=== PATIENT | male | born 1995 | race Caucasian/White ===

== ENCOUNTER 2019-12-29 12:28 | Inpatient (IN) | payer MEDICAID ==
[~2019-12-29] VITALS: Ht 170.2 cm; Wt 69.0 kg
[2019-12-29] VITALS (8 sets, daily range): BP systolic 131–149; BP diastolic 81–95
[~2019-12-29 12:28] MED LIST: LIDOcaine 1% W/epiNEPHrine 1:200,000 10ml vial ONE
--- NOTE | 2019-12-29 12:29 | NUR ---
MORPHINE 4MG GIVEN VIA PIV.VERBAL ORDER RECEIVED FROM DR. TAVAREZ.
[2019-12-29] MEDS ORDERED: morphine 4 MG/ML inj SYRINge IV ONE (12:35)
[2019-12-29] MEDS ORDERED: epiNEPHrine inj 0.3 MG in LIDOcaine 1% 30ml vial 29.7 ML IJ ONE (12:35)
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
[2019-12-29] MEDS ORDERED: normal saline 1000ML IV soln IVB ONE (13:00)
--- NOTE | 2019-12-29 13:00 | NUR ---
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
[2019-12-29 13:11] LABS: BASOPHILS # (AUTO) 0.2 X10'3 (0-0.2); BASOPHILS % (AUTO) 1.1 % (0-1); EOSINOPHILS # (AUTO) 0.5 X10'3 (0-0.9); EOSINOPHILS % (AUTO) 2.5 % (0-6); HEMATOCRIT 48.2 % (42.0-52.0); HEMOGLOBIN 15.8 g/dl (14.0-17.9); LYMPHOCYTES # (AUTO) 7.1 X10'3 (1.1-4.8); LYMPHOCYTES % (AUTO) 32.8 % (21-51); MEAN CORPUSCULAR HEMOGLOBIN 28.2 PG (27.0-31.0); MEAN CORPUSCULAR HGB CONC 32.8 g/dL (33.0-36.5); MEAN PLATELET VOLUME 7.5 FL (7.4-10.4); MONOCYTES # (AUTO) 1.2 X10'3 (0-0.9); MONOCYTES % (AUTO) 5.5 % (2-12); NEUTROPHILS # (AUTO) 12.6 X10'3 (1.8-7.7); NEUTROPHILS % (AUTO) 58.1 % (42-75); PLATELET COUNT 406 X10'3 (140-440); RED BLOOD COUNT 5.61 X10'6 (4.70-6.10); RED CELL DISTRIBUTION WIDTH 13.8 % (11.5-14.5); WHITE BLOOD COUNT 21.6 X10'3 (4.5-11.0)
--- NOTE | 2019-12-29 13:17 | NUR ---
PT BACK FROM CT
[2019-12-29 13:19] LABS: ALANINE AMINOTRANSFERASE 70 U/L (12-78); ALBUMIN 4.1 G/DL (3.4-5.0); ALBUMIN/GLOBULIN RATIO 0.9 (1.1-1.5); ALKALINE PHOSPHATASE 110 IU/L (46-116); ANION GAP 14 (8-16); ASPARTATE AMINO TRANSFERASE 32 U/L (10-37); BILIRUBIN,TOTAL 0.3 MG/DL (0.1-1.0); BLOOD UREA NITROGEN 18 MG/DL (7-18); BUN/CREATININE RATIO 15.1 (5.4-32.0); CALCIUM 9.3 MG/DL (8.5-10.1); CHLORIDE 101 MMOL/L (99-107); CREATININE 1.19 MG/DL (0.60-1.10); GLUCOSE 100 MG/DL (70-104); POTASSIUM 4.3 MMOL/L (3.5-5.1); SODIUM 138 MMOL/L (135-145); TOTAL PROTEIN 8.7 G/DL (6.4-8.2); eGFR 75 ML/MIN
--- NOTE | 2019-12-29 13:19 | NUR ---
PATIENT BACK FROM CT.PLASMA TABLE OPERATOR AT BEDSIDE INTERVIEWNG PATIENT.
--- NOTE | 2019-12-29 13:20 | NUR ---
PATIENT CONNECTED TO A REVIEW APPRAISER,PATIENT ON HIGH FOWLERS,CHEST TUBE TO LEFT CHEST CONNECTED TO SUCTION PER DR. TAVAREZ'S ORDER.
--- NOTE | 2019-12-29 13:20 | NUR ---
DR. NAVARRO AND AT BEDSIDE.
[2019-12-29 13:22] LABS: PARTIAL THROMBOPLASTIN TIME 28 SECONDS (22-32)
[2019-12-29] MEDS ORDERED: potassium CL 10mEq/100ml bag 100 ML IV PRN ×2 (13:30)
[2019-12-29] MEDS ORDERED: magnesium 2GM in 50ml NS 50 ML IV PRN (13:30)
[2019-12-29] MEDS ORDERED: sodium phosphate inj. 15 MMOL in dextrose 5%-water 250 ML IV PRN (13:30)
[2019-12-29] MEDS ORDERED: magnesium Cl slow-release 64mg tablet PO PRN (13:30)
[2019-12-29] MEDS ORDERED: potassium Cl 20 mEq SR tablet PO PRN ×2 (13:30)
[2019-12-29] MEDS ORDERED: acetaminophen 325mg tablet PO PRN ×2 (13:30)
[2019-12-29] MEDS ORDERED: Neutra Phos packet PO PRN (13:30)
[2019-12-29] MEDS ORDERED: magnesium 4gm in 100ml NS 100 ML IV PRN (13:30)
[2019-12-29] MEDS ORDERED: sodium phosphate inj. 30 MMOL in dextrose 5%-water 250 ML IV PRN (13:30)
[2019-12-29] MEDS: K, MAG and/or Phos replacement - Verify level? MC SCH (13:30)
[2019-12-29] MEDS ORDERED: ondansetron/PF 4mg/2ml inj IV PRN (13:30)
--- NOTE | 2019-12-29 13:32 | NUR ---
[facility] CONTACT NUMBER [phone]
[2019-12-29 13:36] LABS: LARGE PLATELETS FEW; PLATELET ESTIMATE NORMAL; TOTAL CELLS COUNTED 100
[2019-12-29 13:40] LABS: CLARITY,URINE CLEAR (Clear); COLOR,URINE YELLOW (Yellow); GLUCOSE, URINE NEGATIVE (Neg); KETONES,URINE NEGATIVE (Neg); LEUKOCYTE ESTERASE ,URINE NEGATIVE (Neg); NITRITES, URINE NEGATIVE (Neg); OCCULT BLOOD,URINE NEGATIVE (Neg); PH,URINE 5.5 (4.8-8.0); PROTEIN,URINE TRACE mg/dl (Neg); UA COLLECTION TYPE CLN CATCH MIDSTREAM; UROBILINOGEN,URINE 0.2 E.U/dL (0.2-1.0)
--- NOTE | 2019-12-29 13:40 | NUR ---
PT GAVE VERBAL CONSENT TO SPEAK TO [facility] ABOUT HIS CONDITION.
[2019-12-29 13:46] LABS: BACTERIA,URINE NONE SEEN /HPF (Neg); COARSE GRANULAR CAST 0-3 /LPF (NEGATIVE); MUCUS STRANDS NONE SEEN /LPF (Neg); RBC,URINE NONE SEEN /HPF (0-2); SQUAMOUS EPITHELIAL CELL,UR FEW /LPF (FEW); WBC,URINE NONE SEEN /HPF (0-4)
[2019-12-29] MEDS ORDERED: morphine/NS 5 mg/ml CADD 50 ML IV SCH (13:47)
[2019-12-29] MEDS ORDERED: naloxone 0.4 mg/ml inj IV PRN (13:50)
[2019-12-29] MEDS ORDERED: CADD PCA waste documentation MC PRN (13:50)
--- NOTE | 2019-12-29 14:37 | NUR ---
Received patient report from FIORELLA Porras.
[2019-12-29] MEDS: morphine/NS 5 mg/ml CADD 50 ML IV SCH ×3 (15:39→22:02)
[2019-12-29] MEDS: pantoprazole 40 MG vial IV SCH (15:59)
[2019-12-29] MEDS: normal saline 1000ml 1,000 ML IV SCH (16:00)
[2019-12-29] MEDS ORDERED: ipratropium/albuterol 3ml nebule NEB SCH (16:00)
[2019-12-29] MEDS ORDERED: ipratropium/albuterol 3ml nebule NEB PRN (16:15)
--- NOTE | 2019-12-29 16:27 | NUR ---
Called and spoke with SANDRA Ledbetter, new order noted to start rocephin 1gm q12 hours and nicotine patch. Jody would like Dr. Dee and Dr. Almeida to approve diet, prior to starting food.
[2019-12-29] MEDS ORDERED: ARIP10TA17 PO (16:39)
[2019-12-29] MEDS ORDERED: CLON-529 PO (16:39)
[2019-12-29] MEDS ORDERED: ATOM40CA PO (16:39)
[2019-12-29] MEDS ORDERED: TRAZ-256 PO (16:39)
[2019-12-29] MEDS ORDERED: HCTZ25T PO (16:39)
[2019-12-29] MEDS ORDERED: ARIP15TA8 PO (16:48)
[2019-12-29] MEDS ORDERED: ATOM60CA4 PO (16:48)
[2019-12-29] MEDS ORDERED: HYDR-3927 PO (16:49)
[2019-12-29] MEDS: nicotine 21mg patch - 24 hr TD SCH (17:24)
[2019-12-29] MEDS: CefTRIAXone/D5W-Rocephin 1gm 50 ML IV SCH (17:24)
[2019-12-29] MEDS ORDERED: ATOM40CA7 PO (17:27)
--- NOTE | 2019-12-29 17:30 | NUR ---
Two attempts made to reach Dr. Almeida regarding patient ability to have a diet. Unable to leave message.
--- NOTE | 2019-12-29 18:25 | NUR ---
End of shift Morphine CADD assessment: Res Vol: 46.2 doses given: 12/25 Amount given: 8.50mg
--- NOTE | 2019-12-29 18:28 | NUR ---
Spoke with Sunny, pharmacist, per Morphine CADD protocol, it is no necessary to reassess q2 hours.
--- NOTE | 2019-12-29 18:30 | NUR ---
Patient in room CICU 2016. I have received report from FIORELLA Sanchez and had the opportunity to ask questions and assume patient care.
--- NOTE | 2019-12-29 18:31 | NUR ---
Problems reprioritized. Patient report given, questions answered & plan of care reviewed with FIORELLA Hamlin.
--- NOTE | 2019-12-29 18:41 | NUR ---
This nurse spoke with Dr. Almeida on telephone to confirm that patient was not going to surgery, new order for regular diet.
[2019-12-29] MEDS ORDERED: ATOMOXETINE HCL PO SCH (20:00)
[2019-12-29] MEDS: docusate sod 100mg capsule PO SCH (20:09)
[2019-12-29] MEDS: traZODone 150mg tablet PO SCH (20:09)
[2019-12-29] MEDS: hydrOXYzine 25 MG tablet PO SCH (20:09)
[2019-12-29] MEDS: cloNIDine 0.1 mg tablet PO SCH (20:09)
[2019-12-30] VITALS (18 sets, daily range): BP systolic 98–148; BP diastolic 53–99
[2019-12-30] MEDS: morphine/NS 5 mg/ml CADD 50 ML IV SCH ×6 (01:50→12:53)
[2019-12-30 05:01] LABS: BASOPHILS % (AUTO) 0.4 % (0-1); EOSINOPHILS # (AUTO) 0.1 X10'3 (0-0.9); EOSINOPHILS % (AUTO) 0.5 % (0-6); HEMATOCRIT 40.4 % (42.0-52.0); HEMOGLOBIN 13.4 g/dl (14.0-17.9); LYMPHOCYTES # (AUTO) 1.3 X10'3 (1.1-4.8); LYMPHOCYTES % (AUTO) 10.8 % (21-51); MEAN CORPUSCULAR HEMOGLOBIN 28.1 PG (27.0-31.0); MEAN CORPUSCULAR HGB CONC 33.1 g/dL (33.0-36.5); MEAN PLATELET VOLUME 7.3 FL (7.4-10.4); MONOCYTES # (AUTO) 0.8 X10'3 (0-0.9); MONOCYTES % (AUTO) 6.7 % (2-12); NEUTROPHILS # (AUTO) 10.1 X10'3 (1.8-7.7); NEUTROPHILS % (AUTO) 81.6 % (42-75); PLATELET COUNT 269 X10'3 (140-440); RED BLOOD COUNT 4.76 X10'6 (4.70-6.10); RED CELL DISTRIBUTION WIDTH 13.7 % (11.5-14.5); WHITE BLOOD COUNT 12.3 X10'3 (4.5-11.0)
[2019-12-30 05:20] LABS: ALANINE AMINOTRANSFERASE 62 U/L (12-78); ALBUMIN 3.5 G/DL (3.4-5.0); ALBUMIN/GLOBULIN RATIO 0.9 (1.1-1.5); ALKALINE PHOSPHATASE 90 IU/L (46-116); ANION GAP 6 (8-16); ASPARTATE AMINO TRANSFERASE 30 U/L (10-37); BILIRUBIN,TOTAL 0.5 MG/DL (0.1-1.0); BLOOD UREA NITROGEN 13 MG/DL (7-18); BUN/CREATININE RATIO 13.3 (5.4-32.0); CHLORIDE 100 MMOL/L (99-107); CREATININE 0.98 MG/DL (0.60-1.10); GLUCOSE 109 MG/DL (70-104); MAGNESIUM 2.1 MG/DL (1.5-2.4); PHOSPHORUS 2.8 MG/DL (2.3-4.5); SODIUM 136 MMOL/L (135-145); TOTAL CARBON DIOXIDE 30.5 MMOL/L (24-32); TOTAL PROTEIN 7.5 G/DL (6.4-8.2); eGFR > 90 ML/MIN
--- NOTE | 2019-12-30 06:17 | NUR ---
Problems reprioritized. Patient report given, questions answered & plan of care reviewed with FIORELLA Sanchez.
[2019-12-30] MEDS: nicotine 21mg patch - 24 hr TD SCH (07:53)
[2019-12-30] MEDS: aripiprazole 5mg tablet PO SCH (07:54)
[2019-12-30] MEDS: pantoprazole 40 MG vial IV SCH (07:54)
[2019-12-30] MEDS: CefTRIAXone/D5W-Rocephin 1gm 50 ML IV SCH ×2 (07:54→20:38)
[2019-12-30] MEDS: docusate sod 100mg capsule PO SCH ×2 (07:55→20:39)
[2019-12-30] MEDS: atomoxetine 40 MG capsule PO SCH (07:55)
[2019-12-30] MEDS: cloNIDine 0.1 mg tablet PO SCH ×2 (07:55→20:38)
[2019-12-30] MEDS: K, MAG and/or Phos replacement - Verify level? MC SCH (08:00)
[2019-12-30] MEDS ORDERED: ATOM60CA4 PEG (11:18)
--- NOTE | 2019-12-30 12:06 | NUR ---
To f/u 01/02 for initial assessment. Addendum: 12/30/19 at [address] Amended: Links added.
--- NOTE | 2019-12-30 16:10 | NUR ---
Patient in room CICU 2016. I have received report from Laura BARROS and had the opportunity to ask questions and assume patient care.
--- NOTE | 2019-12-30 16:10 | NUR ---
Called patient report to FIORELLA Porter. All questions addressed.
--- NOTE | 2019-12-30 16:17 | NUR ---
Patient arrived to the unit accompanied by ICU personnel. Patient safely transferred to new bed, vital signs obtained, heart monitoring continued, patient belongings placed at the bedside, 2 RN skin check completed, and patient was oriented to the room and call light. Will continue to monitor
--- NOTE | 2019-12-30 18:26 | NUR ---
Problems reprioritized. Patient report given, questions answered & plan of care reviewed with Margie BARROS
[2019-12-30] MEDS: traZODone 150mg tablet PO SCH (20:38)
[2019-12-30] MEDS: hydrOXYzine 25 MG tablet PO SCH (20:38)
[2019-12-30] MEDS: lactobacillus rhamnosus 10,000 MMU CELLS/CAPSULE PO SCH (20:38)
[2019-12-31 03:00] VITALS: BP 111/55
[2019-12-31] MEDS: morphine/NS 5 mg/ml CADD 50 ML IV SCH ×5 (05:12→23:00)
[2019-12-31 06:00] VITALS: BP 123/75
[2019-12-31 06:00] LABS: BASOPHILS % (AUTO) 0.5 % (0-1); EOSINOPHILS # (AUTO) 0.1 X10'3 (0-0.9); EOSINOPHILS % (AUTO) 1.5 % (0-6); HEMATOCRIT 41.4 % (42.0-52.0); HEMOGLOBIN 14.1 g/dl (14.0-17.9); LYMPHOCYTES # (AUTO) 1.9 X10'3 (1.1-4.8); LYMPHOCYTES % (AUTO) 22.4 % (21-51); MEAN CORPUSCULAR HEMOGLOBIN 28.9 PG (27.0-31.0); MEAN CORPUSCULAR HGB CONC 34.1 g/dL (33.0-36.5); MEAN CORPUSCULAR VOLUME 84.9 FL (78-98); MEAN PLATELET VOLUME 7.3 FL (7.4-10.4); MONOCYTES # (AUTO) 0.8 X10'3 (0-0.9); MONOCYTES % (AUTO) 9.5 % (2-12); NEUTROPHILS # (AUTO) 5.5 X10'3 (1.8-7.7); NEUTROPHILS % (AUTO) 66.1 % (42-75); PLATELET COUNT 259 X10'3 (140-440); RED BLOOD COUNT 4.87 X10'6 (4.70-6.10); RED CELL DISTRIBUTION WIDTH 13.9 % (11.5-14.5); WHITE BLOOD COUNT 8.3 X10'3 (4.5-11.0)
[2019-12-31 06:25] LABS: ALANINE AMINOTRANSFERASE 152 U/L (12-78); ALBUMIN 3.5 G/DL (3.4-5.0); ALBUMIN/GLOBULIN RATIO 0.8 (1.1-1.5); ALKALINE PHOSPHATASE 132 IU/L (46-116); ANION GAP 9 (8-16); ASPARTATE AMINO TRANSFERASE 75 U/L (10-37); BILIRUBIN,TOTAL 0.4 MG/DL (0.1-1.0); BLOOD UREA NITROGEN 11 MG/DL (7-18); BUN/CREATININE RATIO 12.5 (5.4-32.0); CALCIUM 9.1 MG/DL (8.5-10.1); CHLORIDE 101 MMOL/L (99-107); CREATININE 0.88 MG/DL (0.60-1.10); GLUCOSE 96 MG/DL (70-104); MAGNESIUM 2.1 MG/DL (1.5-2.4); PHOSPHORUS 3.4 MG/DL (2.3-4.5); POTASSIUM 4.2 MMOL/L (3.5-5.1); SODIUM 137 MMOL/L (135-145); TOTAL CARBON DIOXIDE 26.7 MMOL/L (24-32); eGFR > 90 ML/MIN
--- NOTE | 2019-12-31 06:45 | NUR ---
Problems reprioritized. Patient report given, questions answered & plan of care reviewed with Shima RN.
[2019-12-31] MEDS: CefTRIAXone/D5W-Rocephin 1gm 50 ML IV SCH ×2 (09:29→20:27)
[2019-12-31] MEDS: docusate sod 100mg capsule PO SCH ×2 (09:29→20:45)
[2019-12-31] MEDS: pantoprazole 40 MG vial IV SCH (09:29)
[2019-12-31] MEDS: nicotine 21mg patch - 24 hr TD SCH (09:29)
[2019-12-31] MEDS: lactobacillus rhamnosus 10,000 MMU CELLS/CAPSULE PO SCH ×2 (09:29→20:47)
[2019-12-31] MEDS: atomoxetine 40 MG capsule PO SCH (09:30)
[2019-12-31] MEDS: aripiprazole 5mg tablet PO SCH (09:31)
[2019-12-31] MEDS: cloNIDine 0.1 mg tablet PO SCH ×2 (09:32→20:45)
[2019-12-31 10:00] VITALS: BP 116/67
[2019-12-31 15:00] VITALS: BP 123/57
[2019-12-31 18:00] VITALS: BP 123/71
[2019-12-31] MEDS: K, MAG and/or Phos replacement - Verify level? MC SCH (18:00)
--- NOTE | 2019-12-31 18:25 | NUR ---
Patient in room MED 314. I have received report from KAT BARROS and had the opportunity to ask questions and assume patient care.
[2019-12-31] MEDS: hydrOXYzine 25 MG tablet PO SCH (20:45)
[2019-12-31] MEDS: traZODone 150mg tablet PO SCH (20:47)
[2019-12-31] MEDS ORDERED: morphine/NS 5 mg/ml CADD 50 ML IV SCH (21:00)
--- NOTE | 2019-12-31 21:28 | NUR ---
sent pharmacy a note: "Pulled out one bag of Rocephin to admin to pt and it was leaking, so took out another bag. Disposed of 1st bag, pls to not charge pt for 2 bags. only one administered."
[2019-12-31 22:00] VITALS: BP 116/79
[2019-12-31] MEDS: normal saline 1000ml 1,000 ML IV SCH (23:07)
[2020-01-01] MEDS: morphine/NS 5 mg/ml CADD 50 ML IV SCH ×11 (01:00→20:27)
[2020-01-01 02:00] VITALS: BP 113/55
[2020-01-01 06:07] LABS: BASOPHILS # (AUTO) 0.1 X10'3 (0-0.2); BASOPHILS % (AUTO) 0.5 % (0-1); EOSINOPHILS # (AUTO) 0.1 X10'3 (0-0.9); EOSINOPHILS % (AUTO) 1.1 % (0-6); HEMATOCRIT 42.9 % (42.0-52.0); HEMOGLOBIN 14.4 g/dl (14.0-17.9); LYMPHOCYTES # (AUTO) 2.1 X10'3 (1.1-4.8); LYMPHOCYTES % (AUTO) 17.2 % (21-51); MEAN CORPUSCULAR HEMOGLOBIN 28.6 PG (27.0-31.0); MEAN CORPUSCULAR HGB CONC 33.5 g/dL (33.0-36.5); MEAN CORPUSCULAR VOLUME 85.2 FL (78-98); MEAN PLATELET VOLUME 7.4 FL (7.4-10.4); MONOCYTES # (AUTO) 0.8 X10'3 (0-0.9); MONOCYTES % (AUTO) 7.1 % (2-12); NEUTROPHILS # (AUTO) 8.8 X10'3 (1.8-7.7); NEUTROPHILS % (AUTO) 74.1 % (42-75); PLATELET COUNT 291 X10'3 (140-440); RED BLOOD COUNT 5.03 X10'6 (4.70-6.10); RED CELL DISTRIBUTION WIDTH 13.6 % (11.5-14.5); WHITE BLOOD COUNT 11.9 X10'3 (4.5-11.0)
[2020-01-01 06:08] LABS: ALANINE AMINOTRANSFERASE 101 U/L (12-78); ALBUMIN 3.6 G/DL (3.4-5.0); ALBUMIN/GLOBULIN RATIO 0.8 (1.1-1.5); ALKALINE PHOSPHATASE 117 IU/L (46-116); ANION GAP 7 (8-16); ASPARTATE AMINO TRANSFERASE 29 U/L (10-37); BILIRUBIN,TOTAL 0.4 MG/DL (0.1-1.0); BLOOD UREA NITROGEN 13 MG/DL (7-18); BUN/CREATININE RATIO 14.8 (5.4-32.0); CALCIUM 9.1 MG/DL (8.5-10.1); CHLORIDE 100 MMOL/L (99-107); CREATININE 0.88 MG/DL (0.60-1.10); GLUCOSE 96 MG/DL (70-104); PHOSPHORUS 3.8 MG/DL (2.3-4.5); POTASSIUM 4.1 MMOL/L (3.5-5.1); SODIUM 137 MMOL/L (135-145); TOTAL CARBON DIOXIDE 30.2 MMOL/L (24-32); TOTAL PROTEIN 8.2 G/DL (6.4-8.2); eGFR > 90 ML/MIN
[2020-01-01 06:30] VITALS: BP 114/88
--- NOTE | 2020-01-01 06:31 | NUR ---
Problems reprioritized. Patient report given, questions answered & plan of care reviewed with KAT BARROS.
[2020-01-01] MEDS: pantoprazole 40mg Tablet.DR PO SCH (07:30)
[2020-01-01] MEDS: K, MAG and/or Phos replacement - Verify level? MC SCH (08:00)
[2020-01-01] MEDS: nicotine 21mg patch - 24 hr TD SCH (08:00)
[2020-01-01] MEDS: lactobacillus rhamnosus 10,000 MMU CELLS/CAPSULE PO SCH ×2 (08:00→22:17)
[2020-01-01] MEDS: CefTRIAXone/D5W-Rocephin 1gm 50 ML IV SCH ×2 (09:36→22:20)
[2020-01-01] MEDS: atomoxetine 40 MG capsule PO SCH (09:41)
[2020-01-01] MEDS: docusate sod 100mg capsule PO SCH ×2 (09:41→22:17)
[2020-01-01] MEDS: aripiprazole 5mg tablet PO SCH (09:41)
[2020-01-01] MEDS: cloNIDine 0.1 mg tablet PO SCH ×2 (09:41→22:17)
[2020-01-01 11:00] VITALS: BP 120/71
[2020-01-01 15:00] VITALS: BP 122/77
[2020-01-01 18:00] VITALS: BP 124/78
--- NOTE | 2020-01-01 18:00 | NUR ---
Patient in room MED 314. I have received report from Julienne BARROS and had the opportunity to ask questions and assume patient care.
[2020-01-01 22:00] VITALS: BP 140/70
[2020-01-01] MEDS: hydrOXYzine 25 MG tablet PO SCH (22:17)
[2020-01-01] MEDS: traZODone 150mg tablet PO SCH (22:17)
[2020-01-02] MEDS: morphine/NS 5 mg/ml CADD 50 ML IV SCH ×11 (01:00→23:00)
[2020-01-02 02:00] VITALS: BP 130/76
[2020-01-02 04:33] LABS: BASOPHILS # (AUTO) 0.2 X10'3 (0-0.2); BASOPHILS % (AUTO) 1.2 % (0-1); EOSINOPHILS # (AUTO) 0.1 X10'3 (0-0.9); HEMOGLOBIN 13.6 g/dl (14.0-17.9); LYMPHOCYTES % (AUTO) 15.6 % (21-51); MEAN CORPUSCULAR HEMOGLOBIN 28.5 PG (27.0-31.0); MEAN CORPUSCULAR VOLUME 84.1 FL (78-98); MEAN PLATELET VOLUME 7.1 FL (7.4-10.4); MONOCYTES # (AUTO) 0.9 X10'3 (0-0.9); MONOCYTES % (AUTO) 6.8 % (2-12); NEUTROPHILS # (AUTO) 9.8 X10'3 (1.8-7.7); NEUTROPHILS % (AUTO) 75.4 % (42-75); PLATELET COUNT 302 X10'3 (140-440); RED BLOOD COUNT 4.75 X10'6 (4.70-6.10); RED CELL DISTRIBUTION WIDTH 13.7 % (11.5-14.5); WHITE BLOOD COUNT 12.9 X10'3 (4.5-11.0)
[2020-01-02 04:46] LABS: ALANINE AMINOTRANSFERASE 97 U/L (12-78); ALBUMIN 3.4 G/DL (3.4-5.0); ALBUMIN/GLOBULIN RATIO 0.8 (1.1-1.5); ALKALINE PHOSPHATASE 158 IU/L (46-116); ANION GAP 7 (8-16); ASPARTATE AMINO TRANSFERASE 41 U/L (10-37); BILIRUBIN,TOTAL 0.5 MG/DL (0.1-1.0); BLOOD UREA NITROGEN 12 MG/DL (7-18); BUN/CREATININE RATIO 16.4 (5.4-32.0); CALCIUM 9.3 MG/DL (8.5-10.1); CHLORIDE 99 MMOL/L (99-107); CREATININE 0.73 MG/DL (0.60-1.10); GLUCOSE 105 MG/DL (70-104); MAGNESIUM 1.9 MG/DL (1.5-2.4); PHOSPHORUS 3.8 MG/DL (2.3-4.5); POTASSIUM 3.9 MMOL/L (3.5-5.1); SODIUM 136 MMOL/L (135-145); TOTAL CARBON DIOXIDE 30.5 MMOL/L (24-32); TOTAL PROTEIN 7.9 G/DL (6.4-8.2); eGFR > 90 ML/MIN
[2020-01-02 06:00] VITALS: BP 126/78
[2020-01-02] MEDS: K, MAG and/or Phos replacement - Verify level? MC SCH (08:00)
[2020-01-02] MEDS: CefTRIAXone/D5W-Rocephin 1gm 50 ML IV SCH ×2 (08:53→20:41)
[2020-01-02] MEDS: aripiprazole 5mg tablet PO SCH (08:53)
[2020-01-02] MEDS: docusate sod 100mg capsule PO SCH ×2 (08:53→20:40)
[2020-01-02] MEDS: cloNIDine 0.1 mg tablet PO SCH ×2 (08:53→20:40)
[2020-01-02] MEDS: lactobacillus rhamnosus 10,000 MMU CELLS/CAPSULE PO SCH ×2 (08:54→20:40)
[2020-01-02] MEDS: pantoprazole 40mg Tablet.DR PO SCH (08:54)
[2020-01-02] MEDS: nicotine 21mg patch - 24 hr TD SCH (08:54)
[2020-01-02 11:00] VITALS: BP 124/78
[2020-01-02] MEDS: atomoxetine 40 MG capsule PO SCH (12:12)
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
[2020-01-02] MEDS: normal saline 1000ml 1,000 ML IV SCH (13:47)
[2020-01-02 15:00] VITALS: BP 124/80
[2020-01-02 18:00] VITALS: BP 116/77
[2020-01-02] MEDS: traZODone 150mg tablet PO SCH (20:40)
[2020-01-02] MEDS: hydrOXYzine 25 MG tablet PO SCH (20:40)
[2020-01-02 22:00] VITALS: BP 130/72
[2020-01-03] MEDS: morphine/NS 5 mg/ml CADD 50 ML IV SCH ×6 (01:00→11:00)
[2020-01-03 02:00] VITALS: BP 137/82
[2020-01-03 06:00] VITALS: BP 129/88
--- NOTE | 2020-01-03 06:22 | NUR ---
Problems reprioritized. Patient report given, questions answered & plan of care reviewed with Shanta BARROS.
--- NOTE | 2020-01-03 06:26 | NUR ---
Student documentation: I have reviewed and agree with interventions, assessments performed and documented by Phil.
[2020-01-03 07:06] LABS: BASOPHILS # (AUTO) 0.1 X10'3 (0-0.2); BASOPHILS % (AUTO) 0.4 % (0-1); EOSINOPHILS # (AUTO) 0.1 X10'3 (0-0.9); EOSINOPHILS % (AUTO) 1.1 % (0-6); HEMATOCRIT 38.8 % (42.0-52.0); HEMOGLOBIN 13.1 g/dl (14.0-17.9); LYMPHOCYTES # (AUTO) 1.4 X10'3 (1.1-4.8); LYMPHOCYTES % (AUTO) 10.8 % (21-51); MEAN CORPUSCULAR HEMOGLOBIN 28.4 PG (27.0-31.0); MEAN CORPUSCULAR HGB CONC 33.8 g/dL (33.0-36.5); MEAN PLATELET VOLUME 7.1 FL (7.4-10.4); MONOCYTES # (AUTO) 0.9 X10'3 (0-0.9); MONOCYTES % (AUTO) 6.7 % (2-12); NEUTROPHILS # (AUTO) 10.5 X10'3 (1.8-7.7); PLATELET COUNT 328 X10'3 (140-440); RED BLOOD COUNT 4.61 X10'6 (4.70-6.10); RED CELL DISTRIBUTION WIDTH 13.7 % (11.5-14.5)
[2020-01-03 07:25] LABS: ALANINE AMINOTRANSFERASE 59 U/L (12-78); ALBUMIN 3.2 G/DL (3.4-5.0); ALBUMIN/GLOBULIN RATIO 0.7 (1.1-1.5); ALKALINE PHOSPHATASE 118 IU/L (46-116); ANION GAP 9 (8-16); ASPARTATE AMINO TRANSFERASE 17 U/L (10-37); BILIRUBIN,TOTAL 0.5 MG/DL (0.1-1.0); BLOOD UREA NITROGEN 12 MG/DL (7-18); BUN/CREATININE RATIO 15.6 (5.4-32.0); CALCIUM 9.1 MG/DL (8.5-10.1); CHLORIDE 100 MMOL/L (99-107); CREATININE 0.77 MG/DL (0.60-1.10); GLUCOSE 104 MG/DL (70-104); PHOSPHORUS 3.5 MG/DL (2.3-4.5); POTASSIUM 3.8 MMOL/L (3.5-5.1); SODIUM 136 MMOL/L (135-145); TOTAL CARBON DIOXIDE 26.6 MMOL/L (24-32); TOTAL PROTEIN 7.8 G/DL (6.4-8.2); eGFR > 90 ML/MIN
[2020-01-03] MEDS: K, MAG and/or Phos replacement - Verify level? MC SCH (08:00)
[2020-01-03] MEDS: CefTRIAXone/D5W-Rocephin 1gm 50 ML IV SCH (08:47)
[2020-01-03] MEDS: atomoxetine 40 MG capsule PO SCH (08:47)
[2020-01-03] MEDS: docusate sod 100mg capsule PO SCH (08:48)
[2020-01-03] MEDS: lactobacillus rhamnosus 10,000 MMU CELLS/CAPSULE PO SCH (08:48)
[2020-01-03] MEDS: pantoprazole 40mg Tablet.DR PO SCH (08:48)
[2020-01-03] MEDS: aripiprazole 5mg tablet PO SCH (08:48)
[2020-01-03] MEDS: cloNIDine 0.1 mg tablet PO SCH (08:48)
[2020-01-03] MEDS: nicotine 21mg patch - 24 hr TD SCH (08:49)
[2020-01-03 11:00] VITALS: BP 125/76
[2020-01-03] MEDS ORDERED: NICO-687 TD (11:41)
--- NOTE | 2020-01-03 13:00 | NUR ---
Discharge orders received. Pt IV discontinued on bilat arms no s/s complications. Chest tube was pulled earlier by MD. Pt took a shower. Chest tube site covered with CDI opsite dressing. L chest was incision well approx, sutures in and no s/s complications, left open to air per MD. Pt stated understanding of all discharge instructions. All belongings accounted for. Pt given clothes from hospital to go home in. Pt ambulated escorted by nurse to private vehicle.
== END 2020-01-03 13:00 | disposition home or self-care (01) | DRG 121 ==
LOC: EDBD 12:28 → ER 12:28 → EEVIPCON 12:28 → ED HOLD 13:30 → CICU 2S 15:07 → MED 3N 12-30 16:45
PROVIDERS: ADMIT Internal Medicine Critical Care Medicine; ATTEND Internal Medicine Critical Care Medicine
PROC: 0W9B30Z Drainage of Left Pleural Cavity with Drainage Device, Percutaneous Approach (ICD-10-PCS; principal; 2019-12-29)
PROC: 0WQ80ZZ Repair Chest Wall, Open Approach (ICD-10-PCS; 2019-12-29)
DX: J93.83 Other pneumothorax (principal); F15.90 Other stimulant use, unspecified, uncomplicated; I10 Essential (primary) hypertension; I25.10 Atherosclerotic heart disease of native coronary artery without angina pectoris; S21.112A Laceration without foreign body of left front wall of thorax without penetration into thoracic cavity, initial encounter; W26.0XXA Contact with knife, initial encounter; X58.XXXA Exposure to other specified factors, initial encounter; Y93.89 Activity, other specified; Y92.89 Other specified places as the place of occurrence of the external cause; Y99.8 Other external cause status
CPT/HCPCS: 12002; 32551; 36415; 71045; 71270; 74177; 80053; 81001; 83735; 84100; 85007; 85025; 85610; 85730; 86885; 86900; 86901; 87081; 94640; 94668; 94760; 96374; 97161; 97535; 99291; C9113; G0378; J0696; J2270; J7030; Q0177